=== PATIENT | female | born 1940 | race Caucasian/White ===

== ENCOUNTER 2020-09-07 16:58 | Outpatient (CLI) | payer MEDICARE, OTHER | END 2020-09-07 16:59 | disposition short-term general hospital (02) | LOC: EMS 16:58 | PROVIDERS: ATTEND Surgery | DX: M25.552 Pain in left hip (principal); M79.605 Pain in left leg | CPT/HCPCS: A0425; A0427 ==

== ENCOUNTER 2020-09-13 00:22 | Emergency (ER) | payer MEDICARE, OTHER ==
--- NOTE | 2020-09-13 01:26 | ED Physician Documentation ---
PD HPI CHEST PAIN - Stated complaint Stated Complaint: INCREASING HIP PX - Chief complaint Chief Complaint: Ext Problem - History obtained from History obtained from: Patient, EMS - History of Present Illness Timing - onset: Today, Yesterday (She fell Sep 07 and was brought to [facility] by EMS, Dx with hip fracture and had surgical repair next day. Was in hospital few days, with ambulation using walker and had PT treatment. Discharged home yesterday and noted increased pain today with movement of the leg. Pain prohibited using walker.) Timing - onset during: Light activity Timing - details: Gradual onset, Waxing and waning (she has only been taking 1/2 of her prescribed oxycodone pain pills TID. No other pain meds.) Quality: Aching, Sharp, Pain Location: Left chest (she has noted some left chest pain with movement the past few days as well. Denies notable injury there when she fell on the . Using walker at home.) Radiation: No: Jaw, Neck, Back Worsened by: Movement. No: Inspiration, Palpation Associated symptoms: General Weakness. No: Shortness of air, Diaphoresis, Nausea, Palpitations Recently seen: Admitted, Surgery (5 days ago, with recovery few days in the hospital s/p hip fracture repair and then discharged home yesterday. She states she had talked with Social Workers prior to discharge and had opted for home discharge with home care rather than Rehab/SNF care. She still prefers home.) Review of Systems Constitutional: reports: Myalgias. denies: Fever, Chills Nose: denies: Rhinorrhea / runny nose, Congestion Throat: denies: Sore throat Cardiac: reports: Chest pain / pressure, Pedal edema (noted some swelling left lower leg since surgery). denies: Palpitations, Calf pain Respiratory: denies: Dyspnea, Cough GI: denies: Abdominal Pain, Nausea (but has had lesser appetite), Vomiting, Diarrhea : denies: Dysuria, Incontinent Skin: denies: Rash (has noted development of some bruising in left inguinal area and lateral left thigh around surgical area.), Lesions Musculoskeletal: denies: Neck pain, Back pain Neurologic: denies: Focal weakness, Numbness, Altered mental status, Headache PD PAST MEDICAL HISTORY - Past Medical History Cardiovascular: None Respiratory: None Neuro: None Endocrine/Autoimmune: None GI: GERD Psych: Depression - Present Medications Home Medications: Ambulatory Orders Medication Instructions Recorded Confirmed Omeprazole 20 mg PO 09/13/20 Sertraline HCl 150 mg PO 09/13/20 Simvastatin [Zocor] 40 mg PO 09/13/20 - Allergies Allergies/Adverse Reactions: Allergies Allergy/AdvReac Type Severity Reaction Status Date / Time milk Allergy Cramps Verified 09/13/20 03:27 Milk Containing Products Allergy Cramps Verified 09/13/20 03:27 PD ED PE NORMAL - Vitals Vital signs reviewed: Yes - General General: Alert and oriented X 3, No acute distress (appears in some pain with ROM of the left leg/hip. Appears okay when resting. ), Well developed/nourished - Neck Neck: Supple, no meningeal sign, No adenopathy - Cardiac Cardiac: RRR (mild tachycardia), No murmur - Respiratory Respiratory: Clear bilaterally - Abdomen Abdomen: Normal bowel sounds, Soft, Non tender, Non distended - Female Female : Deferred - Rectal Rectal: Deferred - Back Back: No CVA TTP - Derm Derm: Normal color, Warm and dry, Other (generally normal color. There is some warmth along the left lateral thigh/hip at incision area. Some uniform darkness of the skin surrounding the surgical area, c/w likely mild bruising starting. It is not red to suggest infection per se. Some purple/yellowing bruising at left inguinal. No drainage.) - Extremities Extremities: No calf tenderness / cord, Other (mild edema in left ankle and lower leg. No calf tenderness. Right leg okay. ) - Neuro Neuro: Alert and oriented X 3, No motor deficit, No sensory deficit, Normal speech Results - Vitals Vitals: Vital Signs - 24 hr 09/13/20 09/13/20 00:24 03:00 Temperature 37.8 C Heart Rate 106 H 107 H Respiratory 16 18 Rate Blood Pressure 129/77 128/84 H O2 Saturation 97 94 Oxygen O2 Source Room air - Labs Labs: Laboratory Tests 09/13/20 09/13/20 02:22 02:22 WBC 6.6 RBC 3.12 L Hgb 9.7 L Hct 29.6 L MCV 94.9 MCH 31.1 H MCHC 32.8 RDW 13.4 Plt Count 230 MPV 8.5 Neut # (Auto) 5.3 Lymph # (Auto) 0.7 L Hampton # (Auto) 0.5 Eos # (Auto) 0.0 Baso # (Auto) 0.0 Absolute Nucleated RBC 0.00 Nucleated RBC % 0.0 Sodium 134 L Potassium 4.0 Chloride 99 L Carbon Dioxide 22 Anion Gap 13.0 BUN 14 Creatinine 0.9 Estimated GFR (MDRD) 60 L Glucose 108 H Calcium 8.5 Magnesium 1.9 Total Bilirubin 1.4 H AST 42 ALT 30 Alkaline Phosphatase 90 C-Reactive Protein 13.7 H Total Protein 6.5 L Albumin 3.4 Globulin 3.1 Albumin/Globulin Ratio 1.1 - Rads (name of study) duplex left leg Radiology: Prelim report reviewed (no DVT), See rad report chest xray Radiology: Prelim report reviewed (no finiltrates), See rad report left hip Radiology: Prelim report reviewed (unremarkable alignment post ORIF. ), See rad report PD MEDICAL DECISION MAKING - ED course Complexity details: reviewed results (WBC normal. She is anemic without baseline comparison here. Not unexpectedly low considering. No fever. No signs of DVT, pneumonia. Some warmth, mild bruising around left thigh surgical site. Does not look cellulitic and no drainage at this time. ), re-evaluated patient, considered differential (she is feeling improved with some fluids and pain meds here. ), d/w patient Departure - Departure Disposition: 01 Home, Self Care Clinical Impression: Acute postoperative pain of left hip Condition: Stable Record reviewed to determine appropriate education?: Yes Comments: Your ultrasound does not show any signs of clots. You do not have a fever and your white count is normal so no obvious signs of infection. There is a bit of warmth around the incision site but this can often come from inflammation. Your chest xray and the xray of the ortho hardware appear okay. You are anemic, so be sure to have some good iron-containing foods. Continue staying well-hydrated. Gentle range of motion and activity on the hip is good within the limits directed by your orthopedist. Use Tylenol 500 mg 4 times a day regularly. To that add the prescribed oxycodone half to 1 tablet 3 times a day for pain. Recheck if increasing pain or problems or if you develop any fever or you have increasing swelling or redness around the incision site.
[2020-09-13] MEDS ORDERED: SODIUM CHLORIDE 0.9% 1,000 ML IV STA (02:11)
[2020-09-13] MEDS ORDERED: KETOROLAC 15 MG/ML VIAL IVP STA (02:11)
[2020-09-13] MEDS ORDERED: MORPHINE 2 MG/ML CARPUJECT IVP STA (02:11)
[2020-09-13 02:27] LABS: BASOPHILS % (AUTO) 0.3 %; EOSINOPHILS % (AUTO) 0.2 %; HGB - HEMOGLOBIN 9.7 g/dL (12.0-16.0); LYMPHOCYTES # (AUTO) 0.7 10^3/uL (1.5-3.5); LYMPHOCYTES % (AUTO) 11.3 %; MEAN CORPUSCULAR HEMOGLOBIN 31.1 pg (27.0-31.0); MEAN CORPUSCULAR HGB CONC 32.8 g/dL (32.0-36.0); MEAN CORPUSCULAR VOLUME 94.9 fL (81.0-99.0); MEAN PLATELET VOLUME 8.5 fL (7.9-10.8); MONOCYTES # (AUTO) 0.5 10^3/uL (0.0-1.0); NEUTROPHILS # (AUTO) 5.3 10^3/uL (1.5-6.6); NEUTROPHILS % (AUTO) 80.9 %; PLT - PLATELET COUNT 230 10^3/uL (130-450); RED BLOOD COUNT 3.12 10^6/uL (4.20-5.40); RED CELL DISTRIBUTION WIDTH 13.4 % (12.0-15.0); WHITE BLOOD COUNT 6.6 x10^3/uL (4.8-10.8)
[2020-09-13 02:44] LABS: ALBUMIN 3.4 g/dL (3.2-5.5); ALBUMIN/GLOBULIN RATIO 1.1 (1.0-2.2); BILIRUBIN,TOTAL 1.4 mg/dL (0.2-1.0); CALCIUM 8.5 mg/dL (8.5-10.3); CREATININE 0.9 mg/dL (0.4-1.0); CRP - C-REACTIVE PROTEIN 13.7 mg/dL (0-1.0); MAGNESIUM 1.9 mg/dL (1.7-2.8); TOTAL PROTEIN 6.5 g/dL (6.7-8.2)
[2020-09-13 06:12] VITALS: BP 124/78
--- NOTE | 2020-09-13 07:40 | Ultrasound Report ---
PROCEDURE: Duplex Ext Veins Left INDICATIONS: post op left hip fx; left leg pain with swelling TECHNIQUE: Real-time imaging, as well as color and pulse Doppler interrogation, were performed of the lower extr emity deep veins from the inguinal ligament to the popliteal fossa. COMPARISON: None. FINDINGS: The deep veins are normally compressible, and free of intraluminal thrombus. Color and pu lse Doppler demonstrate normal phasic intraluminal flow. There is normal augmentation response to di stal compression maneuver. IMPRESSION: No evidence of deep vein thrombosis involving the left lower extremity. Reviewed by: Deborah Crowe MD, PhD on 09/13/2020 7:39 AM PST Approved by: Deborah Crowe MD, PhD on 09/13/2020 7:39 AM PST Station ID: [id number]
--- NOTE | 2020-09-13 09:14 | XRAY Report ---
PROCEDURE: Hip w/Pelvis 2-3V LT INDICATIONS: post op left hip fx, increased pain TECHNIQUE: AP pelvis with lateral view(s) of the left hip(s). COMPARISON: None. FINDINGS: Bones: No fractures or dislocations. Prior ORIF of left femoral fracture including dynamic hip scre w through a long medullary nicola fixed superiorly and inferiorly. Pelvic ring appears intact. No suspi cious bony lesions. Soft tissues: The visualized bowel gas pattern is normal. No suspicious soft tissue calcifications. IMPRESSION: Prior dynamic hip screw and medullary nicola placement, showing no evidence of malalignment or disruption. No pelvic fracture seen. Reviewed by: Cooper Boles MD on 09/13/2020 9:13 AM [facility] Approved by: Cooper Boles MD on 09/13/2020 9:13 AM [facility] Station ID: [id number]
--- NOTE | 2020-09-13 09:15 | XRAY Report ---
PROCEDURE: Chest 1 View X-Ray INDICATIONS: chest pain TECHNIQUE: One view of the chest was acquired. COMPARISON: None. FINDINGS: Surgical changes and devices: None. Lungs and pleura: No pleural effusions or pneumothorax. Lungs are clear. Mediastinum: Mediastinal contours appear normal. Heart size is normal. Bones and chest wall: No suspicious bony lesions. Overlying soft tissues appear unremarkable. IMPRESSION: Source of chest pain is not seen. Reviewed by: Cooper Boles MD on 09/13/2020 9:14 AM [facility] [[email or web address]] Approved by: Cooper Boles MD on 09/13/2020 9:14 AM [facility] [[email or web address]] Station ID: [id number]
== END 2020-09-13 06:30 | disposition home or self-care (01) ==
LOC: EDUNIT# → ED 00:22
DX: G89.18 Other acute postprocedural pain (principal); M25.552 Pain in left hip; S72.002D Fracture of unspecified part of neck of left femur, subsequent encounter for closed fracture with routine healing; W19.XXXD Unspecified fall, subsequent encounter; R07.9 Chest pain, unspecified; R00.0 Tachycardia, unspecified; D64.9 Anemia, unspecified
CPT/HCPCS: 36415; 80053; 83735; 85025; 86140; 93005; 96374; 99284

== ENCOUNTER 2020-09-13 01:11 | Outpatient (CLI) | payer MEDICARE, OTHER | END 2020-09-13 01:12 | disposition critical access hospital (66) | LOC: EMS 01:11 | PROVIDERS: ATTEND Surgery | DX: R07.81 Pleurodynia (principal) | CPT/HCPCS: A0425; A0429 ==

== ENCOUNTER 2020-10-24 08:00 | Outpatient (CLI) | payer MEDICARE, OTHER | END 2020-10-24 23:59 | disposition home or self-care (01) | LOC: LAB.R 08:00 | PROVIDERS: ATTEND Physician Assistant | DX: R51.9 Headache, unspecified (principal); Z20.822 Contact with and (suspected) exposure to COVID-19 ==

== ENCOUNTER 2021-03-23 16:35 | Outpatient (CLI) | payer MEDICARE, OTHER | END 2021-03-23 16:36 | disposition home or self-care (01) | LOC: COV 16:35 | PROVIDERS: ATTEND Family Medicine | DX: R07.0 Pain in throat (principal); Z20.822 Contact with and (suspected) exposure to COVID-19 ==

== ENCOUNTER 2021-03-24 08:00 | Outpatient (CLI) | payer MEDICARE, OTHER | END 2021-03-24 23:59 | disposition home or self-care (01) | LOC: LAB.S 08:00 | PROVIDERS: ATTEND Emergency Medicine | DX: J02.9 Acute pharyngitis, unspecified (principal); C71.9 Malignant neoplasm of brain, unspecified | CPT/HCPCS: 36415; 80053; 85025; 87070 ==

== ENCOUNTER 2021-03-24 11:56 | Outpatient (CLI) | payer MEDICARE, OTHER ==
[2021-03-24 14:53] LABS: BASOPHILS % (AUTO) 0.2 %; EOSINOPHILS # (AUTO) 0.1 10^3/uL (0.0-0.7); EOSINOPHILS % (AUTO) 1.4 %; HCT - HEMATOCRIT 37.2 % (37.0-47.0); HGB - HEMOGLOBIN 11.7 g/dL (12.0-16.0); LYMPHOCYTES # (AUTO) 0.4 10^3/uL (1.5-3.5); LYMPHOCYTES % (AUTO) 7.8 %; MEAN CORPUSCULAR HEMOGLOBIN 31.8 pg (27.0-31.0); MEAN CORPUSCULAR HGB CONC 31.5 g/dL (32.0-36.0); MEAN CORPUSCULAR VOLUME 101.1 fL (81.0-99.0); MONOCYTES # (AUTO) 0.5 10^3/uL (0.0-1.0); MONOCYTES % (AUTO) 10.1 %; NEUTROPHILS # (AUTO) 3.9 10^3/uL (1.5-6.6); NEUTROPHILS % (AUTO) 80.3 %; PLT - PLATELET COUNT 188 10^3/uL (130-450); RED BLOOD COUNT 3.68 10^6/uL (4.20-5.40); RED CELL DISTRIBUTION WIDTH 13.7 % (12.0-15.0); WHITE BLOOD COUNT 4.9 x10^3/uL (4.8-10.8)
[2021-03-24 15:12] LABS: ALBUMIN 4.5 g/dL (3.2-5.5); ALBUMIN/GLOBULIN RATIO 1.7 (1.0-2.2); BILIRUBIN,TOTAL 0.5 mg/dL (0.2-1.0); CALCIUM 9.3 mg/dL (8.5-10.3); POTASSIUM 4.2 mmol/L (3.5-5.0); TOTAL PROTEIN 7.1 g/dL (6.7-8.2)
== END 2021-03-24 11:57 | disposition home or self-care (01) ==
LOC: LAB.S 11:56
PROVIDERS: ATTEND Internal Medicine
DX: C71.9 Malignant neoplasm of brain, unspecified (principal)
CPT/HCPCS: 36415; 80053; 85025

== ENCOUNTER 2021-04-20 10:15 | Outpatient (CLI) | payer MEDICARE, OTHER ==
[2021-04-20 15:15] LABS: ALBUMIN 4.5 g/dL (3.2-5.5); ALBUMIN/GLOBULIN RATIO 1.7 (1.0-2.2); BILIRUBIN,TOTAL 0.7 mg/dL (0.2-1.0); CALCIUM 9.4 mg/dL (8.5-10.3); POTASSIUM 4.4 mmol/L (3.5-5.0); TOTAL PROTEIN 7.1 g/dL (6.7-8.2)
== END 2021-04-20 10:16 | disposition home or self-care (01) ==
LOC: LAB.S 10:15
PROVIDERS: ATTEND Internal Medicine
DX: C71.9 Malignant neoplasm of brain, unspecified (principal)
CPT/HCPCS: 36415; 80053

== ENCOUNTER 2021-05-18 09:35 | Outpatient (CLI) | payer MEDICARE, OTHER ==
[2021-05-18 15:26] LABS: BASOPHILS % (AUTO) 0.4 %; EOSINOPHILS % (AUTO) 1.1 %; HGB - HEMOGLOBIN 11.2 g/dL (12.0-16.0); LYMPHOCYTES # (AUTO) 0.3 10^3/uL (1.5-3.5); LYMPHOCYTES % (AUTO) 11.7 %; MEAN CORPUSCULAR HEMOGLOBIN 33.2 pg (27.0-31.0); MEAN CORPUSCULAR HGB CONC 31.1 g/dL (32.0-36.0); MEAN CORPUSCULAR VOLUME 106.8 fL (81.0-99.0); MEAN PLATELET VOLUME 9.2 fL (7.9-10.8); MONOCYTES # (AUTO) 0.3 10^3/uL (0.0-1.0); MONOCYTES % (AUTO) 11.3 %; NEUTROPHILS # (AUTO) 2.1 10^3/uL (1.5-6.6); NEUTROPHILS % (AUTO) 75.5 %; PLT - PLATELET COUNT 174 10^3/uL (130-450); RED BLOOD COUNT 3.37 10^6/uL (4.20-5.40); RED CELL DISTRIBUTION WIDTH 14.8 % (12.0-15.0); WHITE BLOOD COUNT 2.8 x10^3/uL (4.8-10.8)
[2021-05-18 15:29] LABS: SLIDE REVIEW? Indicated
[2021-05-18 15:32] LABS: ALBUMIN 4.4 g/dL (3.2-5.5); ALBUMIN/GLOBULIN RATIO 1.8 (1.0-2.2); BILIRUBIN,TOTAL 0.5 mg/dL (0.2-1.0); CREATININE 0.9 mg/dL (0.4-1.0); POTASSIUM 4.2 mmol/L (3.5-5.0); TOTAL PROTEIN 6.9 g/dL (6.7-8.2)
[2021-05-18 16:51] LABS: PLATELET ESTIMATE, MANUAL NORMAL (130-450,000) (NORMAL); PLATELET MORPHOLOGY NORMAL APPEARANCE (NORMAL); RBC MORPHOLOGY (MULTIPLE) 1+ MACROCYTOSIS (NORMAL); WBC MORPHOLOGY (MULTIPLE) NORMAL APPEARANCE (NORMAL)
== END 2021-05-18 09:36 | disposition home or self-care (01) ==
LOC: LAB.S 09:35
PROVIDERS: ATTEND Internal Medicine
DX: C71.9 Malignant neoplasm of brain, unspecified (principal)
CPT/HCPCS: 36415; 80053; 85025

== ENCOUNTER 2021-08-16 09:54 | Outpatient (CLI) | payer MEDICARE, OTHER ==
[2021-08-16 19:53] LABS: EOSINOPHILS % (AUTO) 1.6 %; HCT - HEMATOCRIT 33.9 % (37.0-47.0); HGB - HEMOGLOBIN 11.2 g/dL (12.0-16.0); LYMPHOCYTES # (AUTO) 0.3 10^3/uL (1.5-3.5); LYMPHOCYTES % (AUTO) 11.8 %; MEAN CORPUSCULAR HEMOGLOBIN 35.1 pg (27.0-31.0); MEAN CORPUSCULAR VOLUME 106.3 fL (81.0-99.0); MEAN PLATELET VOLUME 9.6 fL (7.9-10.8); MONOCYTES # (AUTO) 0.3 10^3/uL (0.0-1.0); NEUTROPHILS # (AUTO) 1.9 10^3/uL (1.5-6.6); NEUTROPHILS % (AUTO) 75.6 %; PLT - PLATELET COUNT 136 10^3/uL (130-450); RED BLOOD COUNT 3.19 10^6/uL (4.20-5.40); WHITE BLOOD COUNT 2.6 x10^3/uL (4.8-10.8)
[2021-08-16 20:07] LABS: ALBUMIN 4.4 g/dL (3.2-5.5); ALBUMIN/GLOBULIN RATIO 2.3 (1.0-2.2); BILIRUBIN,TOTAL 0.5 mg/dL (0.2-1.0); CALCIUM 9.3 mg/dL (8.5-10.3); CREATININE 0.8 mg/dL (0.4-1.0); POTASSIUM 3.9 mmol/L (3.5-5.0); TOTAL PROTEIN 6.3 g/dL (6.7-8.2)
== END 2021-08-16 09:55 | disposition home or self-care (01) ==
LOC: LAB.S 09:54
PROVIDERS: ATTEND Internal Medicine
DX: C71.9 Malignant neoplasm of brain, unspecified (principal)
CPT/HCPCS: 36415; 80053; 85025

== ENCOUNTER 2021-09-20 07:53 | Outpatient (CLI) | payer MEDICARE, OTHER | END 2021-09-20 07:54 | disposition critical access hospital (66) | LOC: EMS 07:53 | DX: R41.0 Disorientation, unspecified (principal); R44.3 Hallucinations, unspecified | CPT/HCPCS: A0425; A0429 ==

== ENCOUNTER 2021-09-20 08:28 | Emergency (ER) | payer MEDICARE, OTHER ==
--- NOTE | 2021-09-20 08:43 | ED Physician Documentation ---
PD HPI FOCAL NEURO - Stated complaint Stated Complaint: AMS - Chief complaint Chief Complaint: Neuro - History obtained from History obtained from: Patient, EMS - History of Present Illness Timing - onset: Enter time (0800), Today Timing - duration: Hours Timing - details: Still present in ED, Other (onset unknown) Time of symptom onset unknown: Time of onset unknown Severity of deficit: Moderate Weakness: Face, Arm, Hand, Leg, Foot, Left Numbness: No: Face, Arm, Hand, Leg, Foot, Right, Left Associated symptoms: Other (confusion). No: Headache, Nausea / vomiting, Seizure, Syncope, Fall, Head injury, Chest pain, Neck pain, Back pain, Fever Baseline status: positive: A&OX3, ambulatory, indep Similar symptoms before: Has not had sx before Recently seen: Other (On going treatment for glioblastoma.) - Additional information Additional information: 81-year-old female who has had a glioblastoma resected has had to go back in June have a second portion of the tumor removed and she was on a Decadron taper at that point. She has finished that and she was at home and she has had increasing confusion and problems with her memory over the past 6 months. This morning her found her on the commode unable to get up off of the commode. He called 911 and she was noted to have some left-sided weakness. Her left-sided weakness has been present to some extent previously on her face but not necessarily in her legs or arms. The patient has been tolerating her chemotherapy poorly. She does have this an appointment to have a MRI done later this week for consideration of further treatments. She has a consult with the hospice nurse today.The patient is not able to help much with the history she is pleasant enough but unable to give accurate details. The at the bedside indicates that her 2 children living in the nearby and the [facility] area they are not here on a regular basis. He and his live alone in their home. 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), Breast cancer : None HEENT: None Psych: Anxiety Musculoskeletal: Osteoarthritis Derm: None - Past Surgical History Past Surgical History: Yes Ortho: Other /AUTOMATIC [employer]Y STARCH OPERATOR: Hysterectomy, Oophrectomy, Mastectomy HEENT: Tonsil/Adenoidectomy - Present Medications Home Medications: Ambulatory Orders Medication Instructions Recorded Confirmed Omeprazole 20 mg PO BID 09/13/20 09/20/21 Sertraline HCl 200 mg PO DAILY PM 09/13/20 09/20/21 Simvastatin [Zocor] 40 mg PO DAILY 09/13/20 09/20/21 Calcium Carbonate/Vitamin D3 800 mg PO DAILY 09/20/21 09/20/21 [Calcium 250-Vit D3 125 Tablet] Cholecalciferol (Vitamin D3) 2,000 mcg PO DAILY 09/20/21 09/20/21 [Vitamin D3] D-Mannose [Azo D-Mannose] 1,000 mg PO DAILY 09/20/21 09/20/21 Lactobacillus Combination No.4 1 cap PO DAILY 09/20/21 09/20/21 [Probiotic] Lomustine [Gleostine] 80 mg PO DAILY 09/20/21 09/20/21 Lomustine [Gleostine] 100 mg PO HS 09/20/21 09/20/21 Ondansetron [Ondansetron Odt] 8 mg PO Q8HR PRN 09/20/21 09/20/21 Pantoprazole [Protonix] 40 mg PO BID 09/20/21 09/20/21 SUMAtriptan [Imitrex] 100 mg PO DAILY PRN 09/20/21 09/20/21 dexAMETHasone [Decadron] 2 mg PO Q6H #60 tablet 09/20/21 dexAMETHasone [Decadron] 4 mg PO Q6H #15 tablet 09/20/21 - Allergies Allergies/Adverse Reactions: Allergies Allergy/AdvReac Type Severity Reaction Status Date / Time milk Allergy Cramps Verified 09/20/21 08:38 Milk Containing Products Allergy Cramps Verified 09/20/21 08:38 - Social History Does the pt smoke?: No Smoking Status: Never smoker Does the pt drink ETOH?: Yes Does the pt have substance abuse?: No - Immunizations Immunizations are current?: Yes - POLST Patient has POLST: No PD ED PE NORMAL - Vitals Vital signs reviewed: Yes (hypertensive mild ) - General General: No acute distress, Well developed/nourished, Other (alert but confused. ) - HEENT HEENT: Atraumatic, PERRL, EOMI - Neck Neck: Supple, no meningeal sign, No bony TTP - Cardiac Cardiac: RRR, No murmur - Respiratory Respiratory: No respiratory distress, Clear bilaterally - Abdomen Abdomen: Normal bowel sounds, Soft, Non tender, Non distended, No organomegaly - Back Back: No CVA TTP, No spinal TTP - Derm Derm: Normal color, Warm and dry, No rash - Extremities Extremities: No deformity, No edema - Neuro Neuro: No sensory deficit, Normal speech, Other (left facial droop and left sided weakness/clumbsy upper and lower) Eye Opening: Spontaneous Motor: Obeys Commands Verbal: Confused GCS Score: 14 - Psych Psych: Normal mood, Normal affect NIHSS - Time Time: 08:50 - Level of Consciousness Level of consciousness: (0) Alert, Keenly responsive LOC Questions: (1) Answers one Q correctly LOC Commands: (0) Performs both correctly - Gaze Best Gaze: (0) Normal - Visual Visual: (0) No loss - Facial Palsy Facial Palsy: (1) Minor paralysis - Motor Arms (both separate) Motor Arm (right): (0) No drift Motor Arm (left): (1) Drift - Motor Legs (both separate) Motor Leg (right): (0) No drift Motor Leg (left): (1) Drift - Limb Ataxia Limb Ataxia: (2) Present in 2 limbs - Sensory Sensory: (0) Normal - Best Language Best Language: (0) No aphasia - Dysarthria Dysarthria: (0) Normal - Extinction and Inattention (formally neg Extinction and inattention: (1) Visual,tactile,auditory,spatial, or personal inattention - Total Score/Results Total Score/Result: 7 Results - Vitals Vitals: Vital Signs - 24 hr 09/20/21 09/20/21 09/20/21 08:38 09:19 10:22 Temperature 37.4 C Heart Rate 75 77 76 Respiratory 18 19 17 Rate Blood Pressure 138/80 H 119/73 120/75 O2 Saturation 97 100 100 09/20/21 09/20/21 09/20/21 10:30 11:30 13:35 Temperature 37.2 C Heart Rate 70 67 71 Respiratory 16 20 16 Rate Blood Pressure 125/72 118/78 O2 Saturation 100 91 L 99 Oxygen O2 Source Room air - EKG (time done) 0908 Rate: Rate (enter#) (71) Rhythm: NSR Compare to prior EKG: Changed from prior EKG (SPT rate has decreased) Computer interpretation: Disagree with computer (The computer reads some artifact as a 3rd degree heart block. Clearly sinus ) - Labs Labs: Laboratory Tests 09/20/21 09/20/21 09/20/21 09:01 09:01 09:01 WBC 3.4 L RBC 3.16 L Hgb 11.2 L Hct 32.9 L MCV 104.1 H MCH 35.4 H MCHC 34.0 RDW 12.4 Plt Count 100 L MPV 9.5 Neut # (Auto) 2.9 Lymph # (Auto) 0.2 L Gibson # (Auto) 0.3 Eos # (Auto) 0.0 Baso # (Auto) 0.0 Absolute Nucleated RBC 0.00 Nucleated RBC % 0.0 PT 11.6 INR 1.0 Sodium 132 L Potassium 4.4 Chloride 100 L Carbon Dioxide 22 Anion Gap 10.0 BUN 23 H Creatinine 1.1 H Estimated GFR (MDRD) 48 L Glucose 95 Lactic Acid Calcium 9.1 Total Bilirubin 0.7 AST 27 ALT 19 Alkaline Phosphatase 46 Total Protein 6.6 L Albumin 4.1 Globulin 2.5 Albumin/Globulin Ratio 1.6 Lipase 40 Nasal Adenovirus (PCR) Nasal B. parapertussis DNA (PCR) Nasal Coronavir 229E PCR Nasal Coronavir HKU1 PCR Nasal Coronavir NL63 PCR Nasal Coronavir OC43 PCR Nasal Enterovir/Rhinovir PCR Nasal Influenza B PCR Nasal Influenza A PCR Nasal Parainfluen 1 PCR Nasal Parainfluen 2 PCR Nasal Parainfluen 3 PCR Nasal Parainfluen 4 PCR Nasal RSV (PCR) Nasal B.pertussis DNA PCR Nasal C.pneumoniae (PCR) Simon Human Metapneumo PCR Nasal M.pneumoniae (PCR) Nasal SARS-CoV-2 (PCR) 09/20/21 09/20/21 09:01 10:30 WBC RBC Hgb Hct MCV MCH MCHC RDW Plt Count MPV Neut # (Auto) Lymph # (Auto) Gibson # (Auto) Eos # (Auto) Baso # (Auto) Absolute Nucleated RBC Nucleated RBC % PT INR Sodium Potassium Chloride Carbon Dioxide Anion Gap BUN Creatinine Estimated GFR (MDRD) Glucose Lactic Acid 0.9 Calcium Total Bilirubin AST ALT Alkaline Phosphatase Total Protein Albumin Globulin Albumin/Globulin Ratio Lipase Nasal Adenovirus (PCR) NOT DETECTED Nasal B. parapertussis DNA (PCR) NOT DETECTED Nasal Coronavir 229E PCR NOT DETECTED Nasal Coronavir HKU1 PCR NOT DETECTED Nasal Coronavir NL63 PCR NOT DETECTED Nasal Coronavir OC43 PCR NOT DETECTED Nasal Enterovir/Rhinovir PCR NOT DETECTED Nasal Influenza B PCR NOT DETECTED Nasal Influenza A PCR NOT DETECTED Nasal Parainfluen 1 PCR NOT DETECTED Nasal Parainfluen 2 PCR NOT DETECTED Nasal Parainfluen 3 PCR NOT DETECTED Nasal Parainfluen 4 PCR NOT DETECTED Nasal RSV (PCR) NOT DETECTED Nasal B.pertussis DNA PCR NOT DETECTED Nasal C.pneumoniae (PCR) NOT DETECTED Simon Human Metapneumo PCR NOT DETECTED Nasal M.pneumoniae (PCR) NOT DETECTED Nasal SARS-CoV-2 (PCR) NOT DETECTED - Rads (name of study) CT head Radiology: Prelim report reviewed (Impression: No intracranial hemorrhage. Suspected vasogenic edema in the right frontal, parietal, and temporal lobes. Area of hypodensity in the right thalamus. There is minimal right leftward shift and right sulcal effacement.), EMP read indepedently, See rad report CTA head Radiology: Prelim report reviewed (Impression: 1. Extensive right cerebral hemispheric vasogenic edema causing local mass-effect and mild proximal 4 mm of right to left midline shift. No enhancing mass is identified. Hypodensity in the right help right thalamus which could be related to subacute infarct), Final report received ( or underlying neoplastic process. Recommend MRI of the brain with and without contrast. No large vessel occlusion, vascular stenosis, vascular dissection or aneurysm.), EMP read indepedently, See rad report Procedures - IVC sono (time) 0855 Bedside IVC sono: IVC measures (cm) (0.61), Dehydration (est 3 liter deficit) PD MEDICAL DECISION MAKING - ED course Complexity details: reviewed old records, reviewed results, re-evaluated patient, considered differential, d/w patient, d/w family ED course: 81-year-old female undergoing treatment for glioblastoma has had a reresection of the tumor and Decadron taper when she had similar symptoms previously. Today she is found to be profoundly weak she is weaker on the left side than the right and she has some vasogenic edema she is showing up on her CT scan with some right to left midline shift. She is administered 10 mg of dexamethasone. She is found to be profoundly dehydrated on interrogation the inferior vena cava and she is administered intravenous saline. She has improvement in her motor function on the left upper and lower extremity. The facial paralysis remains subtle and present. There are no beds available at [facility] today. Hospice is consulted in the case. The patient has a prolonged stay in the emergency department and during this period of time she has continued improvement. An MRI is done of the brain and follow-up with the CT scan and this scan shows evidence that the disease has progressed. There is no specific breakdown or bleeding. There is no specific mass. The oncologist is consulted in the case and beds are not available at [facility] today he recommends treatment as an outpatient with the taper of dexamethasone as previously prescribed. The patient was able to stand and walk in the emergency department unaided. The patient's is concerned he may not be able to care for the patient in his home today. He is willing to try. He does have a hospice consultation planned and we have contacted his on-call oncologist and talk to Dr. Avila who recommended the above treatment. He will ask for an expedited visit for planning. The is consulted at the bedside regarding end of life decisions. She is DNR DNI and I have discussed not rescuing dehydration as an exit strategy. I have E scribed the dexamethasone 4 mg tablets every 6 hours for 15 doses followed by 2 mg every 6 for 20 doses and then 1 tablet of 2 mg every 12 hours for 10 doses. Departure - Departure Disposition: 01 Home, Self Care Clinical Impression: Glioblastoma, Dehydration Condition: Stable Instructions: ED Brain Tumor, ED Dehydration Follow-Up: ALBERTA AVILA MD [Physician No Access] - Prescriptions: dexAMETHasone [Decadron] 2 mg PO Q6H #60 tablet dexAMETHasone [Decadron] 4 mg PO Q6H #15 tablet Comments: Erika today it looks like there has been progression of your brain tumor. There is some swelling around this and we are prescribing some medication to reduce the swelling. I have E scribed your dexamethasone to [facility] in [place]. The dosing schedule should be 4 mg tablets 1 every 6 hours for 15 doses following that you will switch to 1 mg tablets and take 2 mg every 6 hours for 20 doses followed by 2 mg every 12 hours for 10 doses. Your oncologist will call you with an expedited appointment for follow-up. In addition Erika today you were significantly dehydrated. This did contribute to your presentation today. The recommendation is to drink adequate amounts of fluid and avoid using excessive caffeine.
--- NOTE | 2021-09-20 09:01 | CT Report ---
PROCEDURE: Head W/O Stroke Protocol INDICATIONS: left sided deficit onset unknown TECHNIQUE: Noncontrast 4.5 mm thick angled axial sections acquired from the foramen magnum to the vertex, with c oronal reformats. For radiation dose reduction, the following was used: automated exposure control, adjustment of mA and/or kV according to patient size. COMPARISON: None available. FINDINGS: Image quality: Excellent. CSF spaces: Basal cisterns are patent. No extra-axial fluid collections. Ventricles are normal in size and shape. Brain: There is minimal right to leftward midline shift.. No intracranial masses or hemorrhage. Ther e is an area of hypodensity in the right frontal parietal and temporal lobes involving the deep white matter. There is sulcal effacement and appears to be mass effect on the right lateral ventricle. Thi s has the appearance of vasogenic edema. There is hypodensity in the region of the right thalamus. Skull and face: Prior right craniectomy. Calvarium and visualized facial bones are intact, without s uspicious lesions. Sinuses: Visualized sinuses and mastoids are clear. IMPRESSION: No acute intracranial hemorrhage. Suspected vasogenic edema in the right frontal, parietal, and temporal lobes. Area of hypodensity in the right thalamus. There is minimal right leftward shift and right sulcal effacement. Results were communicated to Dr. Templeton at 09/20/2021 8:56 AM PST. Reports history of prior brain tu mor. Comparison with prior imaging would be very helpful. Consider brain MRI with IV contrast for further evaluation. This study fulfills neurological imaging criteria for inclusion or exclusion of acute stroke therapie s based on available published neurological imaging guidelines. Reviewed by: Jourdan Draper MD on 09/20/2021 9:00 AM PST Approved by: Jourdan Draper MD on 09/20/2021 9:00 AM PST Station ID: [id number]
[2021-09-20] MEDS ORDERED: iohexoL-300 100 ML VIAL ONE (09:04)
[2021-09-20 09:08] LABS: BASOPHILS % (AUTO) 0.3 %; EOSINOPHILS % (AUTO) 0.3 %; HCT - HEMATOCRIT 32.9 % (37.0-47.0); HGB - HEMOGLOBIN 11.2 g/dL (12.0-16.0); LYMPHOCYTES # (AUTO) 0.2 10^3/uL (1.5-3.5); LYMPHOCYTES % (AUTO) 5.6 %; MEAN CORPUSCULAR HEMOGLOBIN 35.4 pg (27.0-31.0); MEAN CORPUSCULAR VOLUME 104.1 fL (81.0-99.0); MEAN PLATELET VOLUME 9.5 fL (7.9-10.8); MONOCYTES # (AUTO) 0.3 10^3/uL (0.0-1.0); MONOCYTES % (AUTO) 7.3 %; NEUTROPHILS # (AUTO) 2.9 10^3/uL (1.5-6.6); NEUTROPHILS % (AUTO) 86.2 %; PLT - PLATELET COUNT 100 10^3/uL (130-450); RED BLOOD COUNT 3.16 10^6/uL (4.20-5.40); RED CELL DISTRIBUTION WIDTH 12.4 % (12.0-15.0); WHITE BLOOD COUNT 3.4 x10^3/uL (4.8-10.8)
[2021-09-20 09:15] LABS: PT - PROTHROMBIN TIME 11.6 secs (9.9-12.6)
--- NOTE | 2021-09-20 09:30 | CT Report ---
PROCEDURE: ANGIO HEAD W/WO INDICATIONS: L sided facial droop CONTRAST: IV CONTRAST: Isovue 300 ml: 80 PO CONTRAST: *NO PO CONTRAST TECHNIQUE: Precontrast 4.5 mm thick angled axial sections acquired from the foramen magnum to the vertex. Afte r the administration of intravenous contrast, 1 mm thick sections acquired through the [place] of [place] is. Postcontrast 4.5 mm thick sections then re-acquired from the foramen magnum to the vertex. 3-di mensional vbjdxrp-eldehkieh-olsnqemhry (MIP) and/or volume rendering reformats were acquired of the c entral intracranial vasculature. For radiation dose reduction, the following was used: automated ex posure control, adjustment of mA and/or kV according to patient size. COMPARISON: CT head 09/20/2021. FINDINGS: Image quality: Degraded by patient motion artifact. Anterior circulation: Intracranial internal carotid arteries are normal in size and flow. The flow within the paired anterior cerebral arteries is normal and symmetric. The flow within the middle cer ebral arteries is normal and symmetric. The anterior communicating artery is seen. No aneurysms are seen. Posterior circulation: Visualized portions of the vertebral arteries demonstrate normal caliber, and join to form a normal appearing basilar artery. Flow within the posterior cerebral arteries is norm al and symmetric. No aneurysms are seen. Dural sinuses demonstrate normal postcontrast enhancement. CSF spaces: Ventricles are normal in size and shape. Basal cisterns are patent. No extra-axial flu id collections. Brain: Extensive vasogenic edema involving the right cerebral hemisphere. Hypodensity noted in the ri ght thalamus. No suspicious postcontrast enhancement identified in the brain parenchyma. There is mil d, approximately 4 mm of wyhaz-he-fitk midline shift. No intracranial bleeds or masses. Thomas-white m atter interface appears intact. Skull and face: Postsurgical changes compatible with prior right frontal-temporal craniotomy. The fac ial bones appear intact, without suspicious lesions. Sinuses: Visualized sinuses and mastoids are clear. IMPRESSION: 1. Extensive right cerebral hemispheric vasogenic edema causing local mass effect and mild, approxima tely 4 mm of ksbcr-bc-dhig midline shift. 2. No enhancing mass identified. 3. Hypodensity in the right thalamus which could be related to subacute infarct or underlying neoplas tic process. Recommend MRI of the brain with and without contrast. 4. No large vessel occlusion, vascular stenosis, vascular dissection or aneurysm. Reviewed by: Deborah Crowe MD, PhD on 09/20/2021 8:29 AM [facility] Approved by: Deborah Crowe MD, PhD on 09/20/2021 8:29 AM [facility] Station ID: [id number]
--- NOTE | 2021-09-20 09:32 | CT Report ---
PROCEDURE: ANGIO NECK W INDICATIONS: L sided facial droop CONTRAST: IV CONTRAST: Isovue 300 ml: 80 PO CONTRAST: *NO PO CONTRAST TECHNIQUE: After the administration of intravenous contrast, 1.5 mm axial sections acquired from the aortic arch to the [place]. Coronal 3-D maximum intensity projection (MIP) and/or volume rendering ref ormats were then performed. For radiation dose reduction, the following was used: automated exposur e control, adjustment of mA and/or kV according to patient size. COMPARISON: None. FINDINGS: Image quality: Degraded by patient motion artifact. Carotid system: The great vessels demonstrate a conventional anatomy as they arise from the aortic a rch. The origins of the common carotid arteries appear patent. The common carotid arteries demonstr ate normal calibers and courses. The bifurcation regions appear normal bilaterally. The internal ca rotid arteries demonstrate normal caliber and course. Posterior circulation: The origins of the vertebral arteries appear patent. Patient is right verteb ral artery dominant. The more superior portions of the vertebral arteries demonstrate normal course a nd caliber. They join to form a normal appearing basilar artery. Soft tissues: Visualized neck soft tissues demonstrate no suspicious abnormalities. The thyroid is normal in size and there are no incidental findings. Bones: No suspicious bony lesions. Spine degenerative disc disease and facet arthropathy are noted. Visualized cervical spine appears normally aligned. IMPRESSION: No large vessel occlusion, vascular stenosis, vascular dissection or aneurysm. The estimate of stenosis included in the report of the imaging study was calculated using the NASCET method Reviewed by: Deborah Crowe MD, PhD on 09/20/2021 8:31 AM [facility] Approved by: Deborah Crowe MD, PhD on 09/20/2021 8:31 AM [facility] Station ID: [id number]
[2021-09-20] MEDS ORDERED: iohexoL-300 100 ML VIAL IVP ONE (09:43)
[2021-09-20] MEDS ORDERED: DEXAMETHASONE 10 MG/ML VIAL IVP STA ×2 (09:50→14:59)
[2021-09-20] MEDS ORDERED: ASPIRIN CHEW 81 MG TABLET PO STA (09:50)
[2021-09-20] MEDS ORDERED: SODIUM CHLORIDE 0.9% 1,000 ML IV STA (09:50)
[2021-09-20 10:02] LABS: ALBUMIN 4.1 g/dL (3.2-5.5); ALBUMIN/GLOBULIN RATIO 1.6 (1.0-2.2); BILIRUBIN,TOTAL 0.7 mg/dL (0.2-1.0); CREATININE 1.1 mg/dL (0.4-1.0); TOTAL PROTEIN 6.6 g/dL (6.7-8.2)
[2021-09-20 10:03] LABS: CALCIUM 9.1 mg/dL (8.5-10.3); POTASSIUM 4.4 mmol/L (3.5-5.0)
[2021-09-20 11:37] LABS: B. PARAPERTUSSIS- RESP PCR PAN NOT DETECTED; B. PERTUSSIS- RESP PCR PANEL NOT DETECTED; C. PNEUMONIAE- RESP PCR PANEL NOT DETECTED; CORONAVIRUS 229E-RESP PCR NOT DETECTED; CORONAVIRUS HKU1-RESP PCR NOT DETECTED; CORONAVIRUS NL63-RESP PCR NOT DETECTED; CORONAVIRUS OC43-RESP PCR NOT DETECTED; HUMAN METAPNEUMOVIRUS NOT DETECTED; INFLUENZA A- RESP PCR PANEL NOT DETECTED; INFLUENZA B - RESP PCR PANEL NOT DETECTED; M. PNEUMONIAE- RESP PCR PANEL NOT DETECTED; PARAINFLUENZA VIRUS 1 NOT DETECTED; PARAINFLUENZA VIRUS 2 NOT DETECTED; PARAINFLUENZA VIRUS 3 NOT DETECTED; PARAINFLUENZA VIRUS 4 NOT DETECTED; RHINOVIRUS/ENTEROVIRUS NOT DETECTED; RSV- RESP PCR PANEL NOT DETECTED; SARS-CoV-2 -RESP PCR PANEL NOT DETECTED
[2021-09-20] MEDS ORDERED: GADOBUTROL 7.5 MMOL/7.5 ML VIAL ONE (12:29)
--- NOTE | 2021-09-20 13:54 | MRI Report ---
PROCEDURE: Brain W/WO INDICATIONS: Left sided weakness; right-sided vasogenic edema; history of glioblastoma status post r esection and reresection. CONTRAST: IV CONTRAST: Gadavist ml: 5.6 TECHNIQUE: Noncontrast axial T1 spin echo, axial T2 fast spin echo, sagittal and axial FLAIR, coronal T2 fast sp in echo, axial gradient echo, axial diffusion and ADC through the brain. After the administration of contrast, axial and coronal T1 spin echo with fat saturation through the brain. COMPARISON: None. FINDINGS: These images demonstrate postsurgical changes of right pterional region craniotomy, consistent with t he provided history of prior glioblastoma resection/biopsy. Avidly enhancing extra-axial focus immedi ately subjacent to the craniotomy defect and based on the dura measures approximately 1.7 x 1.2 cm ma ximum axial dimension (axial postcontrast image 57). There is also irregular gyriform enhancement thr oughout the adjacent right temporal and frontal lobes, with areas of susceptibility and increased T1 signal likely representing some blood products. Areas of low cortical ADC signal corresponding to the areas of enhancement suggest high cellularity. Extensive increased T2/FLAIR signal adjacent to the e nhancing tumor, some of which is of a slightly lower T2 signal with lower ADC values, highly suspicio us for nonenhancing tumor. Mild uncal herniation and effacement of the right lateral ventricle without evidence of ventricular e ntrapment. Approximately 5 mm cmbsp-yc-flgj midline shift at the level of the third ventricle. No res tricted diffusion to indicate recent ischemia. IMPRESSION: Findings of right frontotemporal glioblastoma with adjacent vasogenic edema and nonenhancing tumor. N o prior imaging is available. Given the progressing neurologic symptoms, disease progression is suspe cted, although correlation with prior studies will be needed. Current, manifesting as some ventricular effacement and approximately 5 mm right to left midline shif t. Reviewed by: Marck Talbert MD on 09/20/2021 1:53 PM PST Approved by: Marck Talbert MD on 09/20/2021 1:53 PM PST Station ID: [id number]
[2021-09-20] MEDS ORDERED: CHERRY SYRUP 10 ML UDC PO ONE (14:59)
[2021-09-20] MEDS ORDERED: GADOBUTROL 10 MMOL/10 ML VIAL IVP ONE (15:31)
[2021-09-20 15:37] VITALS: BP 120/72
== END 2021-09-20 15:37 | disposition home or self-care (01) ==
LOC: EDUNIT# → ED 08:28
DX: C71.9 Malignant neoplasm of brain, unspecified (principal); E86.0 Dehydration; R29.810 Facial weakness; Z20.822 Contact with and (suspected) exposure to COVID-19
CPT/HCPCS: 36415; 70450; 70496; 70498; 70553; 80053; 83605; 83690; 85025; 85610; 87040; 87631; 93005; 96361; 96374; 96376; 99284; 99285; A9270; A9585; Q9967; 0202U